=== PATIENT | male | born 1955 | race Caucasian/White ===

== ENCOUNTER 2021-02-03 13:19 | Emergency (ER) | payer SELFPAY ==
[2021-02-03 13:56] VITALS: BP 137/98; PULSE 71; RESP 18; TEMP 36.4; O2SAT 98
== END 2021-02-04 03:14 | disposition left against medical advice (07) ==
PROVIDERS: PCP Family Medicine
DX: S01.00XA Unspecified open wound of scalp, initial encounter (principal)
CPT/HCPCS: 99199

== ENCOUNTER 2021-06-08 10:13 | Outpatient (CLI) | payer MEDICARE, SELFPAY ==
[2021-06-08 10:37] LABS: Basophils Absolute Auto 0.1 K/mm3 (0.0-0.1); Basophils Percent Auto 0.9 % (0.2-1.2); Eosinophils Percent Auto 0.3 % (0-4.4); Hematocrit 46.8 % (42.0-52.0); Hemoglobin 15.9 g/dL (14.0-18.0); Immature Granulocyte Absolute 0.02 K/mm3 (0.00-0.031); Immature Granulocyte Percent A 0.3 % (0-0.5); Lymphocytes Absolute Auto 2.53 K/mm3 (0.9-3.2); Lymphocytes Percent Auto 37.2 % (18.3-44.2); Mean Corpuscular Hemoglobin 30.5 pg (26-34); Mean Corpuscular Volume 89.7 fl (80-100); Mean Platelet Volume 9.6 fl (7.4-10.4); Monocytes Absolute Auto 0.5 K/mm3 (0.1-0.6); Monocytes Percent Auto 6.8 % (2.6-8.5); Neutrophils Absolute Auto 3.7 K/mm3 (1.3-6.7); Neutrophils Percent Auto 54.5 % (45.5-73.1); Platelet Count Result 251 k/mm3 (150-375); Red Blood Count 5.22 M/mm3 (4.6-6.20); Red Cell Distribution Width 12.5 % (11.5-14.5); White Blood Count 6.8 K/mm3 (4.5-10.0)
[2021-06-08 10:40] LABS: Add Urine Microscopic? NO; Appearance Urine Clear (Clear); Bilirubin Urine Negative (Negative); Blood Urine Negative (Negative); Color Urine Yellow (Yellow); Glucose Urine UA Negative (Negative); Ketones Urine Negative (Negative); Leukocyte Esterase Ur Negative LEU/UL (NEGATIVE); Nitrate Urine Negative (Negative); Protein Urine Negative (Negative); Specific Grav Ur 1.012 (1.001-1.035); Urobilinogen Urine Negative mg/dL (<2.0)
[2021-06-08 10:52] LABS: Alanine Aminotransferase 16 U/L (4-50); Albumin Level 4.6 g/dL (3.5-5.1); Alkaline Phosphatase 44 U/L (38-126); Anion Gap 8 mmol/L (8-16); Aspartate Amino Transferase 21 U/L (17-59); Bilirubin,Total 1.6 mg/dL (0.2-1.3); Blood Urea Nitrogen 18 mg/dL (9-20); Calcium 9.1 mg/dL (8.4-10.2); Carbon Dioxide 30 mmol/L (22-30); Chloride 100 mmol/L (98-107); Cholesterol 173 mg/dL (0-200); Estimated Glomerular Filt Rate > 60; Glucose 107 mg/dL (65-110); HDL Direct 30 mg/dL; Potassium 3.9 mmol/L (3.4-5.0); Sodium 138 mmol/L (137-145); Triglycerides 124 mg/dL (<150)
[2021-06-08 11:07] LABS: LDL Cholesterol Direct 106 mg/dL
[2021-06-08 11:21] LABS: Prostate Specific Antigen 2.8 ng/mL (< OR = 4.0)
== END 2021-06-08 10:14 | disposition home or self-care (01) ==
LOC: ANHLAB 10:18
PROVIDERS: PCP Family Medicine; Visit Provider Nurse Practitioner Family
DX: N40.0 Benign prostatic hyperplasia without lower urinary tract symptoms (principal); I10 Essential (primary) hypertension
CPT/HCPCS: 36415; 80053; 80061; 81003; 84153; 84443; 85025

== ENCOUNTER 2021-06-15 01:34 | Day surgery (SDC) | payer MEDICARE, SELFPAY ==
[2021-06-04 14:07] VITALS: BMI 26.0
--- NOTE | 2021-06-04 14:20 | PC.NURSE ---
Report to the Outpatient Waiting Room, entrance under the green pavilion located off [facility], at time _7:30AM on date __06/15/21 . OR Time: ____9:30AM____. - You and your visitor will be asked a series of questions to screen for COVID 19 for your protection. - A mask is required within the hospital. Preoperative COVID Testing Requirements: No COVID Test needed if: (proof is required; if not received patient will have Rapid Test prior to entry) - Patient has received COVID Vaccine at least 14 days prior to procedure date or - Patient has positive COVID test result within last 90 days of surgery date. COVID Test needed if above criteria is not met If not COVID vaccinated a COVID test must be conducted within 72 hours of surgery and patient is asked to isolate self from time of testing until procedure. You will go to the [facility] ([facility] Testing Site for your COVID testing. The [facility] site is located at the corner of [address] [facility]. You will only be called if COVID results are positive and your surgeon may reschedule your elective surgery date. Patients may have clear liquids (water, carbonated beverages, clear teas, apple juice) until 3 hours prior to surgery with a maximum of 20 ounces. - No food from midnight until time of surgery - Infants may have breast milk until 4 hours before surgery, infant formula 6 hours prior to surgery. - Children will be allowed to drink immediately following surgery. If applicable, please bring a bottle or sippy cup to assist with drinking. Juice, water, soda, and popsicles are readily available. For infants on formula, please bring formula the day of surgery. Pacifiers are allowed. Take the following medications with a SIP of water the morning of surgery: _NONE Medications to discontinue per physician NONE Date to take last dose Please no make-up, nail kosovan, hairspray, perfume, deodorant, or body powder the day of surgery. No jewelry (including any body piercings) or valuables the day of surgery, leave them at home. Please take a shower or bath the night before, or the morning of, surgery with an antibacterial soap. Wear comfortable, loose fitting clothing. Children are encouraged to wear pajamas. - Jewelry must be removed prior to entering the operating room. Rings and piercings that are not removed may be cut off. - The hospital will not accept responsibility for valuables. - Please leave all valuables, including medications, at home the day of surgery. HIBICLENS SHOWER AM OF SURGERY If you are going home after surgery, a licensed racecar driver must drive you home. - NO public transportation without another adult. - We recommend that an adult stay with you for 24 hours following discharge. - We also recommend that you do not drive, make important decision, drink alcoholic beverages, or take any drugs that were not prescribed by your health care provider for at least 24 hours after your discharge time. For Pediatric surgeries, we recommend two adults accompany the child home (only one inside the building at this time). One visitor will be allowed to accompany the patient into the hospital. Patients visitor will be instructed to remain with patient at all times or leave the building. We will allow the visitor to come back to the postoperative area when patient is ready. Follow any additional instructions given to you from your surgeon. Telephone instructions given to __PATIENT and asked if any additional questions and then verbalized understanding. Patient advised to call surgeon office or pre surgery nurse liaison [phone] if any additional questions.
--- NOTE | 2021-06-14 16:05 | PM.SD2 ---
Same Day Admit/Disch: HPI History of Present Illness Chief complaint: Rt Ing Hernia Narrative: Tra Piper is a 66 year old male who has noticed a right groin bulge for at least 5-6 years. This has gotten larger over time and is painful when bulging a lot. He was seen in the office and found to have a right inguinal hernia. He has had a previous left inguinal hernia repair. He is taken to surgery now for right inguinal hernia repair under anesthesia. [facility] Past Medical History Medical History HTN (hypertension) Surgical History Surgical History H/O inguinal hernia repair Left inguinal hernia repair, done in Hx laparoscopic cholecystectomy Family History Family History Sibling Hypertension Mother Family history of lymphoma Diabetes mellitus Father Kidney stones Unknown Diabetes mellitus Cerebrovascular accident Social History Social History Smoking status: Never smoker Alcohol intake: current Drinks per week: 1 Alcohol use details: 1 BEER/WEEK IN SUMMER Substance use: never Living arrangements: with family Additional living arrangements comments: Gender identity (if verbalized by the patient): Male Spiritual care concerns: No Same Day Admit/Disch: Med Pre-admit Medications Home Medications Medication Instructions Recorded Confirmed Type tamsulosin 0.4 mg capsule 0.4 mg PO DAILY #30 cap 05/07/21 06/04/21 Rx lisinopril-hydrochlorothiazide 1 tablet PO QAM 06/04/21 06/04/21 History hydrocodone-acetaminophen 1 - 2 tablet PO Q6H PRN #10 tablet 06/15/21 Rx ibuprofen 600 mg PO Q6H PRN #14 tablet 06/15/21 Rx Exam Const: General: comfortable, no acute distress, alert and awake HENMT: Head: normocephalic and atraumatic Mouth: Yes Normal oral and palatal mucosa present Eyes: Conjunctivae: conjunctivae normal Pupils: Equal, round and reactive pupils present EOM: EOMs intact bilaterally Neck: Neck: normal visual inspection, no lymphadenopathy and nontender Resp: Effort & Inspection: normal respiratory effort Auscultation: clear to auscultation bilaterally Cardio: Rate: regular rate Rhythm: regular rhythm Heart sounds: no gallops, no murmurs and no rubs GI: Inspection: non-distended GI Palp: Yes Soft to palpation, No Tenderness to palpation present (GI), No Hepatomegaly present and No Splenomegaly present : Male General Exam: Yes hernia (right inguinal hernia, reducible) and Yes tenderness Penis: Yes normal penis Scrotum: scrotum normal Testes: Testes normal Skin: Lesions: no lesions Rashes: no rashes Neuro: General: no focal motor deficits and CN's II-XI intact bilaterally Cranial nerves: Yes Equal, round and reactive pupils present, Yes Bilaterally intact EOM present, Yes facial symmetry and Yes Midline tongue present Speech: normal speech Motor exam (neuro): 5/5 motor strength present throughout and Motor abnormalities not present Extrem: General: no clubbing, cyanosis or edema and edema Psych: Affect: normal affect Thought process: Normal thought process present Insight: Good insight present (Psych) DS: Summary Time Spent with Patient Time attestation: Total time spent providing and/or coordinating discharge services: DS: Admitting Diagnosis Discharge Date 06/15/2021 Admitting Diagnosis Reducible right inguinal hernia--patient agrees to proceed with right inguinal hernia repair under anesthesia. The procedure the risks the benefits have been discussed. All questions were answered. He understands and agrees to go ahead. 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
[2021-06-15] MEDS: ACETAMINOPHEN 500 MG TABLET 1000 MG PO (08:09)
[2021-06-15] MEDS: LACTATED RINGERS 1,000 ML 30 ML IV CONT ×2 (08:16→11:01)
[2021-06-15 08:18] VITALS: BP 130/87; PULSE 71; RESP 16; TEMP 36.7; O2SAT 98
--- NOTE | 2021-06-15 09:00 | P.PNAN_ITS ---
Anes - Initial Pre Proc Eval Procedure: Operation Date: 06/15/21 09:30 Proposed Procedures p Repair of Right Inguinal Hernia - Augustus Osborn MD Date/Time: 06/15/21 09:00 Surgeon: Augustus Osborn MD Pre Op Diagnosis: Rt Ing Hernia Patient Data Age: 66 Gender: M Height: 1.75 m Weight: 82.5 kg Last Vital Signs Temp 36.7 C 06/15/21 08:18 Pulse 71 06/15/21 08:18 Resp 16 06/15/21 08:18 BP 130/87 06/15/21 08:18 Pulse Ox 98 06/15/21 08:18 Allergies Allergy/AdvReac Type Severity Reaction Status Date / Time Sulfa (Sulfonamide Allergy Unknown ITCHING Verified 06/15/21 08:00 Antibiotics) Home Medications Medication Instructions Recorded Confirmed Type tamsulosin 0.4 mg capsule 0.4 mg PO DAILY #30 cap 05/07/21 06/04/21 Rx lisinopril-hydrochlorothiazide 1 tablet PO QAM 06/04/21 06/04/21 History Patient hx anesthesia problems: none Family hx anesthesia problems: none Results Review: All pre-operative results and documents have been reviewed as part of the pre-operative evaluation. [facility] Past Medical History Medical History HTN (hypertension) Surgical History Surgical History H/O inguinal hernia repair Left inguinal hernia repair, done in Hx laparoscopic cholecystectomy Family History Family History Sibling Hypertension Mother Family history of lymphoma Diabetes mellitus Father Kidney stones Unknown Diabetes mellitus Cerebrovascular accident Social History Social History Smoking status: Never smoker Alcohol intake: current Drinks per week: 1 Alcohol use details: 1 BEER/WEEK IN SUMMER Substance use: never Living arrangements: with family Additional living arrangements comments: Gender identity (if verbalized by the patient): Male Spiritual care concerns: No Anes - Eval Final PreProcedure Day of Procedure 06/15/21 09:00 Patient weight: overweight Heart: regular rate and rhythm Lungs: clear to auscultation Airway: Mallampati scale class II Neurological: alert and oriented Last oral intake: >/= 8 hours ASA classification: II Emergent: no Anesthetic plan: proceed Anesthesia type and monitoring: general GIVS and standard monitoring Results Review: All pre-operative results and documents have been reviewed as part of the pre-operative evaluation. Informed Consent: The patient's anesthetic plan and its attendant risks and benefits were discussed with the patient/family/POA. Questions were solicited and answers provided to the satisfaction of the patient/family/POA.
[2021-06-15] MEDS: KETOROLAC 15 MG/ML VIAL (*BKC) IV PUSH (09:03)
--- NOTE | 2021-06-15 09:35 | WPDHPUPDATE1 ---
History and Physical Update Update Date/Time: 06/15/21 09:35 History and Physical has been reviewed, including an updated exam of the patient. There are NO changes in the patient's condition. Risks, benefits, and alternatives have been discussed and questions answered. Patient agrees to proceed with procedure.
[2021-06-15] MEDS: ceFAZolin 2 GM/D5W 50 ML 2 GM/50 ML BAG IVPB (09:40)
[2021-06-15 11:00] VITALS: BP 108/65; PULSE 78; RESP 16; O2SAT 92
--- NOTE | 2021-06-15 11:03 | W.PM.PROC2 ---
Procedure Note - Detailed Date of Procedure 06/15/21 Pre-op Diagnosis Rt Ing Hernia Post-op Diagnosis Same Procedure Performed Right inguinal hernia repair with Bard preshaped polypropylene mesh Surgeon Augustus Osborn MD Broach Grinder Daksha MENARD Anesthesia General (G IV S) and Local (0.25% Marcaine with epinephrine) Indications Patient is a 66-year-old man who noticed a bulge in the right groin for quite some time. It had been getting larger and is occasionally painful. He is taken to surgery now for repair. He has had a left inguinal hernia repair in the . Findings Showed of very large direct hernia involving the entire direct space. There was also an indirect hernia that was smaller. Because the entire floor was involved, a Bassini repair was performed and the preshaped polypropylene mesh was used to cover the repair for added reinforcement. Description of Procedure The patient was taken to surgery and anesthesia was induced. The right groin and genitalia were prepped and draped. The proposed incision was marked on the skin. Local was infiltrated into the skin and the deeper subcutaneous tissues. Incision was made and deepened through the subcutaneous. Dissection was carried down through Keshia's fascia and the external oblique aponeurosis was exposed. Cautery was used for hemostasis. The external oblique aponeurosis and the external ring were exposed. Local was infiltrated deep to the aponeurosis in the area of the inguinal canal and its contents. The aponeurosis was then opened laterally and extended medially through the external ring. Care was taken to avoid injury to the ilioinguinal nerve which was left attached to the cord and un injured during the surgery. The leaves of the aponeurosis were dissected free from the underlying inguinal canal contents. We mobilized the cord medially on a Conor drain. The cord was then mobilized further back to the internal ring. There was an obvious large direct hernia. This was carefully dissected free from the spermatic cord. There was some lipomatous tissue attached to the hernia and between the internal ring and the lateral aspect of the hernia sac. This was dissected free and discarded. Beneath this lipomatous tissue was evidence of a small indirect hernia. With the 2 hernias and the very large size of the direct hernia, literally the entire inguinal canal floor was defective. I chose to proceed with a Bassini repair. 0 Ethibond suture were used and we started at the pubic tubercle. Interrupted sutures were used to close the transversalis fascia to the reflection of the inguinal ligament. We proceeded from medial to lateral until the internal ring had been reapproximated to the point that it would admit the tip of a clamp. I infiltrated additional local into the area of the transversalis fascia. I cut the preshaped Bard polypropylene 3 in x 6 in mesh to the appropriate size. It was placed over the inguinal canal floor. The lateral leaves were passed beyond the cord. I then placed the 1st piece of Xaracoll over the mesh. The spermatic cord and ilioinguinal nerve were laid over the mesh as well. The external oblique aponeurosis was closed with interrupted 3-0 Vicryl suture. The 2nd piece of Xaracoll was placed over the aponeurosis. Keshia's fascia was closed with interrupted 3-0 Vicryl suture. The last piece of Xaracoll was then placed in the subcutaneous. The skin was loosely approximated with subcuticular interrupted 4-0 Vicryl suture. Skin was finally closed with a running 4-0 Monocryl skin suture. Wound was dressed with Exofin surgical adhesive. The patient was awakened and taken to recovery in good condition. Sponge needle counts were correct x2. Implants Bard preshaped polypropylene mesh 3 in x 6 in, Xaracoll Estimated Blood Loss -5 Drains No Packing No Pathology None sent Complications No immediate complications Condition Stable Disposition Same day
[2021-06-15 11:30] VITALS: BP 116/73; PULSE 58; RESP 16; O2SAT 95
[2021-06-15 12:00] VITALS: BP 145/83; PULSE 49; RESP 16; O2SAT 96
--- NOTE | 2021-06-15 12:19 | SUR.PHASEII ---
This nurse called md banegas regarding pt low HR. he said as long as pt BP is maintaining and his HR is above 40 pt is fine to go home.
== END 2021-06-15 12:30 | disposition home or self-care (01) ==
PROVIDERS: PCP Family Medicine; Visit Provider Surgery
PROC: (CPT 49505; principal; 2021-06-15 09:30)
DX: K40.90 Unilateral inguinal hernia, without obstruction or gangrene, not specified as recurrent (principal); I10 Essential (primary) hypertension; Z90.49 Acquired absence of other specified parts of digestive tract; N40.0 Benign prostatic hyperplasia without lower urinary tract symptoms
CPT/HCPCS: 49505; A9270; C1781; J0690; J1100; J1885; J2250; J2405; J2704; J3010; J7120

== ENCOUNTER 2023-10-14 08:40 | Day surgery (SDC) | payer MEDICARE, SELFPAY ==
[2023-09-10 14:49] VITALS: BMI 28.4
[2023-09-30 14:06] VITALS: BMI 27.1
--- NOTE | 2023-10-13 19:35 | PM.HPGS ---
History of Present Illness History of Present Illness Consent: Risks, benefits, and alternatives have been discussed and questions answered. Patient agrees to proceed with procedure. Chief complaint: Personal History Colonic Polyps Narrative: Tra Piper is a 68 year old male with histroy of polyps who is referred for colon cancer screening. Review of Systems Review of Systems: All systems reviewed & are unremarkable except as noted in HPI and below PMFSH Past Medical History Medical History Horseshoe tear of retina of left eye HTN (hypertension) Surgical History Surgical History H/O inguinal hernia repair Left inguinal hernia repair, done in History of inguinal hernia repair right side 06/15/21 Hx laparoscopic cholecystectomy Family History Family History Sibling Hypertension Mother Family history of lymphoma Diabetes mellitus Father Kidney stones Unknown Diabetes mellitus Cerebrovascular accident Social History Social History Smoking status: Never smoker Alcohol intake: current Drinks per week: 1 Alcohol use details: 1 BEER/WEEK IN SUMMER Substance use: never Substance use type: does not use Living arrangements: with family Additional living arrangements comments: Occupation/Education: retired Gender identity (if verbalized by the patient): Male Spiritual care concerns: No Meds Home Medications and Allergies Home Medications Medication Instructions Recorded Confirmed Type lisinopril 10 1 tablet PO QAM #90 tabs 07/28/23 09/30/23 Rx mg-hydrochlorothiazide 12.5 mg tablet sildenafil 100 mg tablet 50 - 100 mg PO .PRN PRN sexual 07/31/23 09/30/23 Rx activity #30 tabs Allergies Allergy/AdvReac Type Severity Reaction Status Date / Time Sulfa (Sulfonamide Allergy Unknown ITCHING Verified 10/14/23 09:43 Antibiotics) Exam Const: General: alert Orientation/consciousness: patient oriented x3 Resp: Auscultation: clear to auscultation bilaterally Cardio: Rhythm: regular rhythm GI: GI Palp: Yes Soft to palpation and No Tenderness to palpation present (GI) Neuro: General: patient oriented x3 Assessment and Plan Assessment and plan (1) Personal history of colonic polyps: Code(s): Z86.010 - Personal history of colonic polyps Status: Acute Assessment and Plan: Colonoscopy with possible biopsy or polypectomy or cautery or injection of substances.
--- NOTE | 2023-10-14 09:56 | WPDANESEPPF ---
Anes - Initial Pre Proc Eval Procedure: Operation Date: 10/14/23 11:00 Proposed Procedures p Diagnostic Colonoscopy - Archie Shelton MD Date/Time: 10/14/23 09:56 Surgeon: Archie Shelton MD Pre Op Diagnosis: Personal History Colonic Polyps Patient Data Age: 68 Gender: M Height: 1.75 m Weight: 81.5 kg Allergies Allergy/AdvReac Type Severity Reaction Status Date / Time Sulfa (Sulfonamide Allergy Unknown ITCHING Verified 10/14/23 09:43 Antibiotics) Home Medications Medication Instructions Recorded Confirmed Type lisinopril 10 1 tablet PO QAM #90 tabs 07/28/23 09/30/23 Rx mg-hydrochlorothiazide 12.5 mg tablet sildenafil 100 mg tablet 50 - 100 mg PO .PRN PRN sexual 07/31/23 09/30/23 Rx activity #30 tabs Patient hx anesthesia problems: none Family hx anesthesia problems: none Results Review: All pre-operative results and documents have been reviewed as part of the pre-operative evaluation. [facility] Past Medical History Medical History Horseshoe tear of retina of left eye HTN (hypertension) Surgical History Surgical History H/O inguinal hernia repair Left inguinal hernia repair, done in History of inguinal hernia repair right side 06/15/21 Hx laparoscopic cholecystectomy Family History Family History Sibling Hypertension Mother Family history of lymphoma Diabetes mellitus Father Kidney stones Unknown Diabetes mellitus Cerebrovascular accident Social History Social History Smoking status: Never smoker Alcohol intake: current Drinks per week: 1 Alcohol use details: 1 BEER/WEEK IN SUMMER Substance use: never Substance use type: does not use Living arrangements: with family Additional living arrangements comments: Occupation/Education: retired Gender identity (if verbalized by the patient): Male Spiritual care concerns: No Anes - Eval Final PreProcedure Day of Procedure 10/14/23 09:56 Patient weight: overweight Heart: regular rate and rhythm Lungs: clear to auscultation Airway: Mallampati scale class II Neurological: alert and oriented Last oral intake: >/= 8 hours ASA classification: II Emergent: no Anesthetic plan: proceed Anesthesia type and monitoring: general GIVS and standard monitoring Results Review: All pre-operative results and documents have been reviewed as part of the pre-operative evaluation. Informed Consent: The patient's anesthetic plan and its attendant risks and benefits were discussed with the patient/family/POA. Questions were solicited and answers provided to the satisfaction of the patient/family/POA.
[2023-10-14 09:58] VITALS: BP 127/89; PULSE 76; RESP 16; TEMP 36.9; O2SAT 97
[2023-10-14] MEDS: LACTATED RINGERS 1,000 ML 150 ML IV CONT (10:03)
[2023-10-14 10:47] VITALS: BP 121/70; PULSE 66; RESP 15; O2SAT 95
[2023-10-14 10:57] VITALS: BP 108/79; PULSE 64; RESP 16; O2SAT 95
[2023-10-14 11:07] VITALS: BP 112/71; PULSE 61; RESP 16; O2SAT 99
--- NOTE | 2023-10-14 11:53 | WPDANESPN ---
Anes - Prog Note Post-Op Date/Time: 10/14/23 11:53 Cardiovascular status: normal Respiratory status: normal Airway patency: baseline Mental status: baseline Post-Op hydration status: normal Vital Signs: Last Vital Signs Temp 36.9 C 10/14/23 09:58 Pulse 61 10/14/23 11:07 Resp 16 10/14/23 11:07 BP 112/71 10/14/23 11:07 Pulse Ox 99 10/14/23 11:07 O2 Del Method Room Air 10/14/23 11:07 Pain Score (VAS): 0/10 I/O: Intake & Output 10/13/23 10/14/23 10/14/23 23:59 07:59 15:59 Intake Total 600 Balance 600 Patient Feedback: Patient satisfied with anesthetic care.
== END 2023-10-14 11:16 | disposition home or self-care (01) ==
PROVIDERS: PCP Family Medicine; Visit Provider Internal Medicine Gastroenterology
PROC: 0DJD8ZZ Inspection of Lower Intestinal Tract, Via Natural or Artificial Opening Endoscopic (ICD-10-PCS; CPT 45378; principal; 2023-10-14 11:00)
DX: Z12.11 Encounter for screening for malignant neoplasm of colon (principal); K57.30 Diverticulosis of large intestine without perforation or abscess without bleeding
CPT/HCPCS: G0121

== ENCOUNTER 2024-09-30 10:02 | Outpatient (CLI) | payer MEDICARE, SELFPAY ==
--- NOTE | ~2024-09-30 | MR_ITS ---
MRI of the lumbar spine Clinical History: Other postprocedural state Technique: Axial T2-weighted images, and sagittal T1-weighted, T2-weighted, and T2 fat-sat images wer e acquired. Findings: No fracture seen. There is 3 mm retrolisthesis of L3 over L4. There is 3 mm retrolisthesis of L5 over S1. No suspicious bone marrow signal abnormality seen. At L1-L2, there is no disc bulge or herniation. There is moderate to advanced facet arthropathy. No c entral canal stenosis or neural foraminal narrowing. At L2-L3, there is no disc bulge or herniation. There is moderate facet arthropathy. No central canal stenosis or definite neural foraminal narrowing. At L3-L4, there is disc bulge with advanced facet arthropathy. There is moderate to advanced spinal c anal stenosis/thecal sac compression. There is moderate to severe bilateral neural foraminal narrowin g. At L4-L5, there is advanced degenerative distended. There is mild disc bulge and severe facet arthrop athy. No colby central canal stenosis. There is severe right neural foraminal narrowing, and mild lef t neural foraminal narrowing. At L5-S1, there is advanced degenerative distended. There is diffuse disc bulge with advanced facet a rthropathy. No central canal stenosis. There is severe left neural foraminal narrowing and moderate t o severe right neural foraminal narrowing. Paravertebral soft tissues are unremarkable. Impression: Advanced degenerative spondylosis, especially of the lower lumbar spine, as above, probably worst at L3-L4. 3 mm retrolisthesis of L3 over L4. 3 mm retrolisthesis of L5 over S1. Reviewed, dictated and finalized at [facility]. Impression: Advanced degenerative spondylosis, especially of the lower lumbar spine, as abo ve, probably worst at L3-L4. 3 mm retrolisthesis of L3 over L4. 3 mm retrolisthesis of L5 over S1.
== END 2024-09-30 10:03 | disposition home or self-care (01) ==
LOC: MICIMG 10:06
PROVIDERS: PCP Family Medicine
DX: M48.00 Spinal stenosis, site unspecified (principal); Z98.890 Other specified postprocedural states; R29.898 Other symptoms and signs involving the musculoskeletal system; M43.06 Spondylolysis, lumbar region
CPT/HCPCS: 72148